=== PATIENT | female | born 1950 | race Two or more races ===

== ENCOUNTER 2020-11-26 12:39 | Outpatient (CLI) | payer OTHER ==
[~2020-11-26 12:39] MED LIST: ASA81 MG PO; CELEBREX100 MG PO; HYZAAR 50-12.1 UDTAB PO; INDOCIN SR75 MG PO; LEVSIN0.125 MG PO; METFORMIN HCL500 MG PO; PANADOL EXTRA500 MG PO; PROTONIX40 MG PO; SIMVASTATIN20 MG; ZOCOR40 MG PO
== END 2020-11-26 14:48 | disposition home or self-care (01) ==
LOC: SONOGRAMA 12:39
PROVIDERS: ATTEND Surgery
DX: N60.82 Other benign mammary dysplasias of left breast (principal); N60.11 Diffuse cystic mastopathy of right breast; N60.12 Diffuse cystic mastopathy of left breast; R92.0 Mammographic microcalcification found on diagnostic imaging of breast

== ENCOUNTER 2022-07-18 09:34 | Outpatient (CLI) | payer OTHER | END 2022-07-18 09:46 | disposition home or self-care (01) | LOC: SONOGRAMA 09:34 | PROVIDERS: ATTEND Surgery | DX: D24.1 Benign neoplasm of right breast (principal); N60.11 Diffuse cystic mastopathy of right breast; N60.12 Diffuse cystic mastopathy of left breast; N62 Hypertrophy of breast; N60.81 Other benign mammary dysplasias of right breast ==

== ENCOUNTER 2024-01-28 06:00 | Day surgery (SDC) | payer OTHER ==
[2024-01-21 09:47] LABS: PH,URINE 6.5 (5.0-8.0); URINE APPEARANCE Cloudy; URINE BILIRRUBIN Negative (NEGATIVE); URINE BLOOD Negative; URINE COLOR Dark Yellow; URINE GLUCOSE Negative (NEGATIVE); URINE KETONE Trace (NEGATIVE); URINE LEUKOCYTE Moderate; URINE NITRATE Positive; URINE PROTEIN Trace (NEGATIVE)
[2024-01-21 09:48] LABS: URINE EPITHELIAL CELLS 40.5 uL (0.0-38.8); URINE RBC 4.2 uL (0.0-20.8)
[2024-01-21 10:04] LABS: URINE BACTERIA > 9821.5 uL (0.0-1933); URINE CAST 0.61 uL (0.0-1.40)
[2024-01-21 10:29] LABS: ALBUMIN 4.1 gm/dL (3.4-5.0); BILIRUBIN TOTAL 0.69 mg/dL (0.3-1.2); CALCIUM 9.4 mg/dL (8.5-10.1); CREATININE SERUM 0.63 mg/dL (0.55-1.02); GFR 92.89; GLOBULINA 2.9 G/DL (2.4-3.5); POTASSIUM 3.98 mEq/L (3.5-5.1)
[2024-01-21 11:43] LABS: HEMATOCRIT 38.3 % (36.0-45.00); HEMOGLOBIN 12.8 g/dL (12.0-15.00); MEAN CELL VOLUME 83.7 fL (80.00-100.00); MEAN CORPUSCULAR HGB CONC 33.4 g/dl (32.0-36.0); PLATELET COUNT 210 K/uL (150-450); RED BLOOD COUNT 4.57 M/uL (4.00-6.00); RED CELL DISTRIBUTION WIDTH 14.9 % (11.5-14.5)
[2024-01-21 12:17] LABS: INR 1.05; PARTIAL THROMBOPLASTIN TIME 28.1 SECONDS (22.0-34.0); PROTHROMBIN TIME 11.4 SECONDS (9.0-11.5)
[~2024-01-28 06:00] MED LIST changes: +CRESTOR40 MG; +JANUMET; +METOPROLOL; +ZETIA10 MG
[2024-01-28] MEDS ORDERED: KETOROLAC TROMETHAMINE 30 MG VIAL ONE (06:42)
[2024-01-28] MEDS ORDERED: BUPIVACAINE HCL/MPF 0.5% 30ML VIAL ONE (06:42)
[2024-01-28] MEDS ORDERED: LIDOCAINE HCL 1%/EPINEPHRINE 20ML VIAL IJ ONE (06:42)
[2024-01-28] MEDS ORDERED: CEFAZOLIN SODIUM 1,000 MG VIAL ONE ×2 (06:44→06:55)
[2024-01-28] MEDS ORDERED: SUGAMMADEX SODIUM 200 MG/2 ML VIAL IV ONE (08:18)
[2024-01-28] MEDS ORDERED: METHYLPREDNISOLONE ACETATE 80 MG/ML VIAL ONE (08:18)
[2024-01-28] MEDS ORDERED: MORPHINE SULFATE 4 MG/ML VIAL IV ONE ×2 (09:20→10:35)
== END 2024-01-28 13:45 | disposition home or self-care (01) ==
LOC: CIR.AMB 06:00
PROVIDERS: ATTEND Orthopaedic Surgery
DX: M75.01 Adhesive capsulitis of right shoulder (principal); M19.011 Primary osteoarthritis, right shoulder; M65.811 Other synovitis and tenosynovitis, right shoulder; M75.121 Complete rotator cuff tear or rupture of right shoulder, not specified as traumatic; M24.111 Other articular cartilage disorders, right shoulder; M75.21 Bicipital tendinitis, right shoulder; I10 Essential (primary) hypertension; E11.9 Type 2 diabetes mellitus without complications